=== PATIENT | female | born 1975 | race Caucasian/White ===

== ENCOUNTER 2017-07-27 12:39 | Emergency (ER) | payer BC ==
[~2017-07-27] VITALS: Ht 154.9 cm; Wt 61.6 kg
[~2017-07-27 12:39] MED LIST: BACT800T5 PO
[2017-07-27 12:50] VITALS: BP 130/78; PULSE 93; RESP 22; TEMP 98.9
[2017-07-27] MEDS ORDERED: CLAR10CA3 PO (13:08)
[2017-07-27] MEDS ORDERED: SODIUM CHLORIDE 0.9% FLUSH 10 ML FLUSH IVF PRN (13:15)
[2017-07-27] MEDS ORDERED: ASPIRIN 81 MG CHEW TAB PO ONE (13:15)
[2017-07-27] MEDS ORDERED: methylPREDNISolone SOD SUCC 125 MG/2 ML VIAL IVP ONE (13:15)
--- NOTE | 2017-07-27 13:17 | PD ---
HPI Chief Complaint: Cold / Flu Symptoms Time Seen by Provider: 12:59 Travel History International Travel<30 days: No Contact w/Intl Traveler<30days: No Traveled to known affect area: No History of Present Illness HPI 41-year-old female with a history of asthma who presents to the emergency department with chest discomfort that started yesterday feeling like someone is sitting on her chest, constant, severe, associated with shortness of breath and tightness in her chest. She denies a productive cough, fevers or chills. She has had some rhinorrhea and sinus problems which she was attributing allergies. She says everyone at her work is sick with similar symptoms. She tried a nebulizer at home but it didn't help her so she came to the emergency department. She does smoke cigarettes. She denies any history of hypertension , hyperlipidemia or diabetes and her mom had a heart problem but in her 60s. PFSH Past Medical History Asthma: Yes Cancer: Yes (CERVICAL) Diminished Hearing: No Hypertension: Yes Respiratory: Yes (asthma) Immunizations Current: Yes ?: Not LMP: June 07 : 4 Para: 3 Miscarriage: 1 : 0 Tubal Ligation: Yes Past Surgical History Gynecologic Surgery: Yes (LASER OF CERVIX 1991 ca ) Tonsillectomy: Yes (1984) Social History Alcohol Use: Yes (DAILY) Tobacco Use: Yes (<1PPD) Substance Use: No (denies) Allergies-Medications (Allergen,Severity, Reaction): Coded Allergies: morphine (Unverified Allergy, Severe, HIVES, 07/27/17) penicillin G (Unverified Allergy, Severe, BLISTERS IN MOUTH, 07/27/17) Reported Meds & Prescriptions Reported Meds & Active Scripts Active Reported Claritin (Loratadine) 10 Mg Cap 10 Mg PO DAILY Review of Systems Except as stated in HPI: all other systems reviewed are Neg Physical Exam Narrative GENERAL:Well appearing, no acute distress SKIN: Focused skin assessment warm and dry. HEAD: Atraumatic. Normocephalic. EYES: Pupils equal and round. No injection or drainage. ENT: Moist mucous membranes NECK: Trachea midline. CARDIOVASCULAR: Regular rate and rhythm. No murmur appreciated. RESPIRATORY: Tachypneic with no wheezing. GASTROINTESTINAL: Abdomen soft, non-tender, nondistended. MUSCULOSKELETAL: No obvious deformities. NEUROLOGICAL: Awake and alert. No obvious cranial nerve deficits. Moving all extremities. PSYCHIATRIC: Appropriate mood and affect; insight and judgment normal. Data Data Last Documented VS Vital Signs Date Time Temp Pulse Resp B/P (MAP) Pulse Ox O2 Delivery O2 Flow Rate FiO2 07/27/17 13:40 98.2 93 16 126/75 (92) 97 Room Air 07/27/17 13:22 21 Orders Orders Electrocardiogram (07/27/17 13:04) Complete Blood Count With Diff (07/27/17 13:04) Comprehensive Metabolic Panel (07/27/17 13:04) D-Dimer (07/27/17 13:04) Troponin I (07/27/17 13:04) Chest, Single Ap (07/27/17 13:04) Ecg Monitoring (07/27/17 13:04) Bilateral Bp Monitoring (07/27/17 13:04) Iv Access Insert/Monitor (07/27/17 13:04) Oximetry (07/27/17 13:04) Oxygen Administration (07/27/17 13:04) Aspirin Chew (Aspirin Chew) (07/27/17 13:15) Sodium Chloride 0.9% Flush (Ns Flush) (07/27/17 13:15) Methylprednisolone So Succ Inj (Solumedr (07/27/17 13:15) Albuterol-Ipratropium Neb (Duoneb Neb) (07/27/17 13:15) Labs Laboratory Tests Test 07/27/17 13:15 White Blood Count 11.1 TH/MM3 Red Blood Count 4.61 MIL/MM3 Hemoglobin 13.9 GM/DL Hematocrit 40.8 % Mean Corpuscular Volume 88.5 FL Mean Corpuscular Hemoglobin 30.3 PG Mean Corpuscular Hemoglobin Concent 34.2 % Red Cell Distribution Width 12.8 % Platelet Count 436 TH/MM3 Mean Platelet Volume 6.8 FL Neutrophils (%) (Auto) 64.8 % Lymphocytes (%) (Auto) 27.9 % Monocytes (%) (Auto) 5.0 % Eosinophils (%) (Auto) 1.5 % Basophils (%) (Auto) 0.8 % Neutrophils # (Auto) 7.1 TH/MM3 Lymphocytes # (Auto) 3.1 TH/MM3 Monocytes # (Auto) 0.6 TH/MM3 Eosinophils # (Auto) 0.2 TH/MM3 Basophils # (Auto) 0.1 TH/MM3 CBC Comment DIFF FINAL Differential Comment D-Dimer Quantitative (PE/DVT) 0.34 MG/L FEU Blood Urea Nitrogen 4 MG/DL Creatinine 0.64 MG/DL Random Glucose 89 MG/DL Total Protein 7.3 GM/DL Albumin 3.8 GM/DL Calcium Level 8.5 MG/DL Alkaline Phosphatase 74 U/L Aspartate Amino Transf (AST/SGOT) 16 U/L Alanine Aminotransferase (ALT/SGPT) 18 U/L Total Bilirubin 0.2 MG/DL Sodium Level 139 MEQ/L Potassium Level 3.6 MEQ/L Chloride Level 107 MEQ/L Carbon Dioxide Level 25.4 MEQ/L Anion Gap 7 MEQ/L Estimat Glomerular Filtration Rate 102 ML/MIN Troponin I LESS THAN 0.02 NG/ML MDM Medical Decision Making Medical Screen Exam Complete: Yes Emergency Medical Condition: Yes Interpretation(s) Afebrile, mild tachycardia, normotensive, no hypoxia Mild leukocytosis Electrolytes are reassuring Troponin is normal D-dimer is 0.34 Chest x-ray: No acute process Differential Diagnosis Bronchitis, pneumonia, myocardial infarction, pulmonary embolism Narrative Course This is a 41-year-old female who presents to the emergency Department with nonproductive cough, chest tightness in chest pain. She has a history of asthma and has had bronchitis before and says this feels similar. EKG is nonischemic. Labs are all reassuring including a normal troponin and normal d- dimer. I think the patient can safely be discharged with albuterol, azithromycin and prednisone in the setting of acute bronchitis. She feels much better after serial bronchodilator treatments and steroids. I was a little wary because her physical exam didn't demonstrate as much wheezing as I expected , but her symptoms significantly improved upon reassessment so I think bronchitis is the most likely explanation. Diagnosis Primary Impression: Bronchitis Patient Instructions: General Instructions Departure Forms: Tests/Procedures, Work Release Enter return to work date: Jul 29, 2017 Additional Instructions: If you develop severe shortness of breath, chest pain, or difficulty breathing return to the emergency department. Use albuterol every 4 hours for the next 2 days. Then use as needed for wheezing. Complete your course of steroids. Complete your course of antibiotics. Follow up with your primary care physician in 2-3 days if your symptoms have not improved. Med/Other Pt SpecificInfo: Prescription(s) given Scripts Albuterol 8.5 GM Inh (Proair Hfa 8.5 GM Inh) 90 Mcg/Act Aer 2 PUFF INH Q4-6H Y for SHORTNESS OF BREATH, #1 INHALER 0 Refills 108 mcg/actuation Prov: Sybil Montes De Oca MD 07/27/17 Azithromycin (Azithromycin) 250 Mg Tab 250 MG PO DIRECTED for Infection, #6 TAB 0 Refills Take 2 tabs (500 mg) on day 1 then 1 tab daily x 4 days. Prov: Sybil Montes De Oca MD 07/27/17 Prednisone (Prednisone) 20 Mg Tab 40 MG PO DAILY for 4 Days, TAB 0 Refills Prov: Sybil Montes De Oca MD 07/27/17 Disposition: 01 DISCHARGE HOME Condition: Stable Sybil Montes De Oca MD Jul 27, 2017 13:17
[2017-07-27] MEDS: RESP: ALBUTEROL 2.5 MG/IPRATROPIUM 0.5 MG NEB (SCH) INH ×2 (13:18→13:19)
[2017-07-27 13:22] VITALS: O2SAT 98
[2017-07-27 13:25] LABS: AUTOMATED NEUTROPHIL # 7.1 TH/MM3 (1.8-7.7); BASOPHIL # 0.1 TH/MM3 (0-0.2); BASOPHIL % 0.8 % (0.0-2.0); EOSINOPHIL # 0.2 TH/MM3 (0-0.4); EOSINOPHIL % 1.5 % (0.0-4.0); HEMATOCRIT 40.8 % (35.0-46.0); HEMO FLAGS DIFF FINAL; LYMPH % 27.9 % (9.0-44.0); LYMPHOCYTE # 3.1 TH/MM3 (1.0-4.8); MEAN CELL VOLUME 88.5 FL (80.0-100.0); MEAN CORPUSCULAR HEMOGLOBIN 30.3 PG (27.0-34.0); MEAN CORPUSCULAR HGB CONC 34.2 % (32.0-36.0); NEUT % 64.8 % (16.0-70.0); PLATELET COUNT 436 TH/MM3 (150-450); RED BLOOD COUNT 4.61 MIL/MM3 (4.00-5.30); RED CELL DISTRIBUTION WIDTH 12.8 % (11.6-17.2); WHITE BLOOD COUNT 11.1 TH/MM3 (4.0-11.0)
[2017-07-27 13:29] VITALS: O2SAT 95
[2017-07-27 13:30] VITALS: BP_SYST 115; BP_SYST 131; BP_DIAS 76; BP_DIAS 82; PULSE 82; RESP 18; O2SAT 95
--- NOTE | 2017-07-27 13:32 | RADRPT ---
EXAM DATE/TIME: 07/27/2017 13:14 [facility] COMPARISON: No previous studies available for comparison. INDICATIONS : Tightness in chest for 2 days, short of breath and coughing this morning MEDICAL HISTORY : asthma, smoker SURGICAL HISTORY : None. ENCOUNTER: Initial ACUITY: 2 days PAIN SCORE: 10/10 LOCATION: Bilateral chest FINDINGS: A single view of the chest demonstrates the lungs to be symmetrically aerated without evidence of mas s, infiltrate or effusion. The cardiomediastinal contours are unremarkable. Osseous structures are intact. CONCLUSION: No acute disease. There is no evidence of pneumonia. Taco Goldman MD on July 27, 2017 at 13:31 Board Certified Radiologist. This report was verified electronically.
[2017-07-27 13:36] LABS: CHLORIDE 107 MEQ/L (98-107); POTASSIUM 3.6 MEQ/L (3.5-5.1); SODIUM (NA) 139 MEQ/L (136-145)
[2017-07-27 13:40] VITALS: BP 126/75; PULSE 93; RESP 16; TEMP 98.2; O2SAT 97
[2017-07-27 13:41] LABS: ANION GAP 7 MEQ/L (5-15); BICARBONATE 25.4 MEQ/L (21.0-32.0); BLOOD UREA NITROGEN 4 MG/DL (7-18)
[2017-07-27 13:44] LABS: ALT (GPT) 18 U/L (10-53); AST (GOT) 16 U/L (15-37)
[2017-07-27 13:45] LABS: GLOMERULAR FILTRATION RATE 102 ML/MIN (>89)
[2017-07-27 13:46] LABS: TOTAL BILIRUBIN ADULT 0.2 MG/DL (0.2-1.0)
[2017-07-27 13:47] LABS: ALKALINE PHOSPHATASE 74 U/L (45-117)
[2017-07-27] MEDS ORDERED: ALBUAER3 INH (14:03)
[2017-07-27] MEDS ORDERED: PRED20 PO (14:03)
[2017-07-27] MEDS ORDERED: AZIT250T3 PO (14:03)
[2017-07-27 14:20] VITALS: BP 137/71
--- NOTE | 2017-07-29 01:20 | EKG ---
Date Performed: 07/27/2017 Time Performed: 13:10:14 PTAGE: 41 years EKG: Sinus rhythm NORMAL ECG NO PREVIOUS TRACING DOCTOR: Raul Bautista Interpretating Date/Time 07/29/2017 01:18:48
== END 2017-07-27 14:23 | disposition home or self-care (01) ==
LOC: PHED 12:39
DX: J40 Bronchitis, not specified as acute or chronic (principal); F17.210 Nicotine dependence, cigarettes, uncomplicated; I10 Essential (primary) hypertension; Z85.41 Personal history of malignant neoplasm of cervix uteri
CPT/HCPCS: 71010; 80053; 84484; 85025; 85379; 93005; 94640; 94664; 96374; 99285; J2930

== ENCOUNTER 2017-09-20 15:53 | Emergency (ER) | payer BC ==
[~2017-09-20] VITALS: Ht 154.9 cm; Wt 62.4 kg
[~2017-09-20 15:53] MED LIST changes: +ALBUAER3 INH; +AZIT250T3 PO; -BACT800T5 PO; +CLAR10CA3 PO; +PRED20 PO
[2017-09-20 16:11] VITALS: BP 143/88; PULSE 77; RESP 16; TEMP 98.9; O2SAT 99
--- NOTE | 2017-09-20 16:47 | PD ---
HPI Chief Complaint: Musculoskeletal Complaint Time Seen by Provider: 16:34 Travel History International Travel<30 days: No Contact w/Intl Traveler<30days: No Traveled to known affect area: No History of Present Illness HPI 41-year-old female presents to the emergency department with left shoulder pain for 1-1/2 weeks. States that she woke up feeling numbness in her arm as if she slept on it then moved her arm, felt a pop, and then had increased pain. States that she has been working in her normal job but pain is increased over the last couple of days. She describes the pain as excruciating and throbbing. Movement increases her pain. She has taken Tylenol and ibuprofen without relief. States that she does have some tingling from the medial portion of her elbow down to her pinky finger. Denies chronic medical issues or chronic medication use. Denies fever, chills, chest pain. PFSH Past Medical History Asthma: Yes Cancer: Yes (CERVICAL) Diminished Hearing: No Hypertension: Yes Respiratory: Yes (asthma) Immunizations Current: Yes ?: Not : 4 Para: 3 Miscarriage: 1 : 0 Tubal Ligation: Yes Past Surgical History Gynecologic Surgery: Yes (LASER OF CERVIX 1991 ca ) Tonsillectomy: Yes (1984) Social History Alcohol Use: Yes (DAILY) Tobacco Use: Yes (<1PPD) Substance Use: No (denies) Allergies-Medications (Allergen,Severity, Reaction): Coded Allergies: morphine (Unverified Allergy, Severe, HIVES, 09/20/17) penicillin G (Unverified Allergy, Severe, BLISTERS IN MOUTH, 09/20/17) Reported Meds & Prescriptions Reported Meds & Active Scripts Active Robaxin (Methocarbamol) 500 Mg Tab 500 Mg PO TID 5 Days Proair Hfa 8.5 GM Inh (Albuterol Sulfate) 90 Mcg/Act Aer 2 Puff INH Q4-6H PRN 108 mcg/actuation Reported Claritin (Loratadine) 10 Mg Cap 10 Mg PO DAILY Review of Systems Except as stated in HPI: all other systems reviewed are Neg Physical Exam Narrative GENERAL: Well-developed well-nourished SKIN: Focused skin assessment warm/dry. HEAD: Atraumatic. Normocephalic. EYES: Pupils equal and round. No scleral icterus. No injection or drainage. ENT: No nasal bleeding or discharge. Mucous membranes pink and moist. NECK: Trachea midline. No JVD. No tenderness on palpation of the spine or paraspinous muscles CARDIOVASCULAR: Regular rate and rhythm. No murmur appreciated. RESPIRATORY: No accessory muscle use. Clear to auscultation. Breath sounds equal bilaterally. MUSCULOSKELETAL: No obvious deformities. No clubbing. No cyanosis. No edema. Right shoulder tender to palpation of the right acromioclavicular joint and approximately 3cm distal to the joint. TTP of musculature surrounding joint. Able to perform Apley's with difficulty. positive empty can test. positive campbell. NEUROLOGICAL: Awake and alert. No obvious cranial nerve deficits. Motor grossly within normal limits. Normal speech. Neurovascularly intact. DTRs intact. PSYCHIATRIC: Appropriate mood and affect; insight and judgment normal. Data Data Last Documented VS Vital Signs Date Time Temp Pulse Resp B/P (MAP) Pulse Ox O2 Delivery O2 Flow Rate FiO2 09/20/17 16:11 98.9 77 16 143/88 (106) 99 Orders Orders Shoulder, Complete (>2vws) (09/20/17 ) Ketorolac Inj (Toradol Inj) (09/20/17 17:00) Ed Discharge Order (09/20/17 18:00) MDM Medical Decision Making Medical Screen Exam Complete: Yes Emergency Medical Condition: Yes Differential Diagnosis Left shoulder: Rotator cuff injury versus humerus fracture versus contusion Narrative Course 41-year-old female presents to emergency department with pain in her left shoulder for 1-1/2 weeks. States she woke up feeling like her arm was numb, moved her arm hurt a pop then had increased pain over the last few days. States this is the first occurrence. Currently she has tingling of her left pinky finger but able to move and has sensation. She denies trauma. States that she has been working her usual job but has been "taking it easy". Physical exam demonstrates likely right rotator cuff injury- difficulty with Apley scratch test, positive Campbell, positive empty can test. X-ray without acute process Muscle relaxers for her muscle spasms. Advised to follow up with her within her primary care within 2 days Diagnosis Primary Impression: Rotator cuff injury Qualified Codes: S46.002A - Unspecified injury of muscle(s) and tendon(s) of the rotator cuff of left shoulder, initial encounter Referrals: Orthopedist Primary Care Physician Additional Instructions: May use heat and/or ice for symptoms Use light stretches for the shoulder. Follow-up with orthopedic doctor and her primary care doctor within 2 days Scripts Methocarbamol (Robaxin) 500 Mg Tab 500 MG PO TID for Muscle Spasm for 5 Days, TAB 0 Refills Prov: Jourdan Connolly MD 09/20/17 Disposition: 01 DISCHARGE HOME Condition: Stable Cherelle Lai Sep 20, 2017 16:47
[2017-09-20] MEDS ORDERED: KETOROLAC TROMETHAMINE 60 MG/2 ML (IM) VIAL IM ONE ×2 (17:00)
--- NOTE | 2017-09-20 17:44 | RADRPT ---
EXAM DATE/TIME: 09/20/2017 16:55 [facility] COMPARISON: No previous studies available for comparison. INDICATIONS : Left shoulder pain from unknown injury. MEDICAL HISTORY : None. SURGICAL HISTORY : None. ENCOUNTER: Initial ACUITY: 2 weeks PAIN SCORE: 7/10 LOCATION: Left shoulder. FINDINGS: Multiple view examination of the left shoulder demonstrates no evidence of fracture or dislocation. The glenohumeral and acromioclavicular joints are maintained. There is normal range of motion betwee n internal and external rotation. Bony mineralization is normal. CONCLUSION: Negative exam. No acute osseous injury or significant degenerative changes. Herman Valadez MD on September 20, 2017 at 17:41 Board Certified Radiologist. This report was verified electronically.
[2017-09-20] MEDS ORDERED: ROBA500T PO ×2 (17:58)
== END 2017-09-20 18:13 | disposition home or self-care (01) ==
LOC: PHEFT 15:53
DX: S46.002A Unspecified injury of muscle(s) and tendon(s) of the rotator cuff of left shoulder, initial encounter (principal); R20.0 Anesthesia of skin; J45.909 Unspecified asthma, uncomplicated; I10 Essential (primary) hypertension; Z72.0 Tobacco use; X58.XXXA Exposure to other specified factors, initial encounter
CPT/HCPCS: 73030; 96372; 99284; J1885